=== PATIENT | male | born 1935 | race Caucasian/White ===

== ENCOUNTER 2019-01-17 16:10 | Emergency (ER) | payer MEDICARE, OTHER ==
[2019-01-17 16:29] VITALS: BP 144/72
--- NOTE | 2019-01-17 16:34 | ER Document Report ---
ED Medical Screen (RME) - General Chief Complaint: Leg Pain Stated Complaint: LEG PAIN Time Seen by Provider: 01/17/19 16:28 Primary Care Provider: BROOKE VELA MD [Primary Care Provider] - Follow up as needed Mode of Arrival: Ambulatory Information source: Patient Notes: 83-year-old male presented to ED for injury to the front of the right leg this afternoon. He has peripheral vascular disease he is at [facility] he is got extensive medical history and is on Eliquis for A. fib. He has an extensive bruise to the right leg with a large water blister to the right leg. Patient is alert oriented respirations regular and unlabored speaking in full sentences walks with even steady gait. I have greeted and performed a rapid initial assessment of this patient. A comprehensive ED assessment and evaluation of the patient, analysis of test results and completion of medical decision making process will be conducted by an additional ED providers. Dictation of this chart was performed using voice recognition software; therefore, there may be some unintended grammatical errors. TRAVEL OUTSIDE OF THE [place] IN LAST 30 DAYS: No - Related Data Allergies/Adverse Reactions: No Known Allergies Allergy (Verified 01/17/19 16:13) Physical Exam - Vital signs Vitals: Temp Pulse Resp BP Pulse Ox 98.4 F 70 16 144/72 H 96 01/17/19 16:27 01/17/19 16:27 01/17/19 16:27 01/17/19 16:27 01/17/19 16:27 Course - Vital Signs Vital signs: Temp Pulse Resp BP Pulse Ox 98.4 F 70 16 144/72 H 96 01/17/19 16:27 01/17/19 16:27 01/17/19 16:27 01/17/19 16:27 01/17/19 16:27 Doctor's Discharge - Discharge Referrals: BROOKE VELA MD [Primary Care Provider] - Follow up as needed
[2019-01-17] MEDS ORDERED: CLINDAMYCIN HCL 150 MG CAPSULE PO ONE (18:11)
--- NOTE | 2019-01-17 18:59 | ER Document Report ---
ED Extremity Problem, Lower - General Chief Complaint: Leg Pain Stated Complaint: LEG PAIN Time Seen by Provider: 01/17/19 16:28 Primary Care Provider: BROOKE VELA MD [NO LOCAL MD] - Follow up as needed Mode of Arrival: Ambulatory Information source: Patient Notes: Patient is an 83-year-old male presenting to the emergency department with chief complaint of injury to his right lower extremity. 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 He states this happened around noon today. He does report that he takes Eliquis. He denies any other symptoms today. TRAVEL OUTSIDE OF THE [place] IN LAST 30 DAYS: No - Related Data Allergies/Adverse Reactions: No Known Allergies Allergy (Verified 01/17/19 16:13) Past Medical History - General Information source: Patient - Social History Smoking Status: Never Smoker Chew tobacco use (# tins/day): No Frequency of alcohol use: None Drug Abuse: None Family History: Reviewed & Not Pertinent Patient has suicidal ideation: No Patient has homicidal ideation: No - Past Medical History Cardiac Medical History: Reports: Hx Atrial Fibrillation, Hx Hypertension Renal/ Medical History: Denies: Hx Peritoneal Dialysis - Immunizations Immunizations up to date: Yes Hx Diphtheria, Pertussis, Tetanus Vaccination: Yes Review of Systems - Review of Systems Constitutional: No symptoms reported. denies: Fever EENT: No symptoms reported Cardiovascular: No symptoms reported Respiratory: No symptoms reported Gastrointestinal: No symptoms reported Genitourinary: No symptoms reported Male Genitourinary: No symptoms reported Musculoskeletal: No symptoms reported Skin: See HPI Hematologic/Lymphatic: No symptoms reported Neurological/Psychological: No symptoms reported Physical Exam - Vital signs Vitals: Temp Pulse Resp BP Pulse Ox 98.4 F 70 16 144/72 H 96 01/17/19 16:27 01/17/19 16:27 01/17/19 16:27 01/17/19 16:27 01/17/19 16:27 - Notes Notes: PHYSICAL EXAMINATION: GENERAL: Well-appearing, well-nourished and in no acute distress. HEAD: Atraumatic, normocephalic. EYES: Pupils equal round and reactive to light, extraocular movements intact, sclera anicteric, conjunctiva are normal. ENT: Nares patent, oropharynx clear without exudates. Moist mucous membranes. NECK: Normal range of motion, supple without lymphadenopathy LUNGS: Breath sounds clear to auscultation bilaterally and equal. No wheezes rales or rhonchi. HEART: Regular rate and rhythm without murmurs ABDOMEN: Soft, nontender, nondistended abdomen. No guarding, no rebound. No masses appreciated. Musculoskeletal: Normal range of motion, no pitting or edema. No cyanosis. NEUROLOGICAL: Cranial nerves grossly intact. Normal speech, normal gait. Normal sensory, motor exams PSYCH: Normal mood, normal affect. SKIN: Discoloration noted to bilateral lower extremities consistent with venous insufficiency. Erythema noted to right anterior lower extremity between the knee and ankle. 3 cm x 3 cm fluid-filled blister to right anterior lower extremity over the benedict. Normal temperature, cap refill less than 3 seconds, normal dorsalis pedis pulse. Course - Re-evaluation Re-evalutation: Patient ambulated into the emergency department with a steady gait. He does have what appears to be a bullous appearing blister measuring approximately 3cm x 3cm. This also has surrounding erythema which patient states has been there. Patient does have venous insufficiency. Patient denies any fever, reports mild pain for the affected area. Reports his tetanus is up-to-date. Labs were ordered by triage provider, patient is very adamantly refusing to have his labs drawn on. He states he had a full panel of labs drawn yesterday at his primary care provider's office as he is pending a cardiac ablation next week. 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 I did have my attending physician, Dr. Garcia come and evaluate this patient. Patient again declines lab draw. Plan to I&D the area to allow for drainage. Will marked the erythema with a surgical marker in case this is a cellulitis although patient states his leg always looks red. Will also place patient on clindamycin. Patient instructed to make his primary care provider aware of his treatment today. - Vital Signs Vital signs: Temp Pulse Resp BP Pulse Ox 98.4 F 70 16 144/72 H 96 01/17/19 16:27 01/17/19 16:27 01/17/19 16:27 01/17/19 16:27 01/17/19 16:27 Procedures - Incision and Drainage Right lower benedict Type: Simple I&D procedure: Chlorprep applied Incision Method: Incision made by scalpel Discharge - Discharge Clinical Impression: Bullous lesion Cellulitis Qualifiers: Site of cellulitis: extremity Site of cellulitis of extremity: lower extremity Laterality: right Qualified Code(s): L03.115 - Cellulitis of right lower limb Condition: Stable Disposition: HOME, SELF-CARE Additional Instructions: The rash is likely due to infection of your skin. You need to take the antibiotics as prescribed. Do not stop even if the rash goes away until you have completed all the antibiotics. The area of redness was traced out here in the emergency department with a marking pen. You need to return to emergency department if the redness spreads outside of this area by more than 2 cm in any direction. You should also return if you develop fevers with temperature greater than 101, persistent vomiting, worsening pain, or have any other symptoms that are concerning to you. Prescriptions: Clindamycin HCl 300 mg PO TID #30 capsule Referrals: BROOKE VELA MD [NO LOCAL MD] - Follow up as needed
== END 2019-01-17 19:08 | disposition home or self-care (01) ==
LOC: ER 16:10
DX: L03.115 Cellulitis of right lower limb (principal); I87.2 Venous insufficiency (chronic) (peripheral); I10 Essential (primary) hypertension; I48.91 Unspecified atrial fibrillation; Z79.01 Long term (current) use of anticoagulants
CPT/HCPCS: 99283; 87070; 87205; 10060; A9270